=== PATIENT | male | born 1970 | race Caucasian/White ===

== ENCOUNTER 2019-07-12 13:21 | Emergency (ER) | payer BC ==
[~2019-07-12] VITALS: Ht 182.9 cm; Wt 75.7 kg
--- NOTE | 2019-07-12 13:35 | NUR ---
MID STERNAL CHEST PRESSURE, NON RADIATING SINCE LAST NIGHT. 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 STATES HAVING SOME DIFFICULTY TAKING DEEP BREATHS. INITIALLY HAD "SENSE OF IMPENDING DOOM". DENIES NUMBNESS/TINGLING IN EXTREMITIES. NO ACUTE DISTRESS NOTED AND NO OTHER COMPLAINTS AT THIS TIME. EKG COMPLETED, LAB AT BEDSIDE FOR BLOOD DRAW. THREAD DRAWER STANDING BY. ON MONITOR AND READY FOR EVAL.
[2019-07-12 13:45] LABS: BASOPHILS # (AUTO) 0.1 /CMM (0.0-0.2); BASOPHILS % (AUTO) 0.7 % (0.0-2.0); EOSINOPHILS % (AUTO) 0.3 % (0.0-6.0); HEMATOCRIT 43 % (39-51); HEMOGLOBIN 14.5 g/dL (13.5-17.5); LYMPHOCYTES # (AUTO) 1.9 /CMM (0.8-4.8); MEAN CORPUSCULAR HGB CONC 34 g/dl (31.0-36.0); MEAN CORPUSCULAR VOLUME 92 fL (80-96); MONOCYTES # (AUTO) 0.5 /CMM (0.1-1.30); MONOCYTES % (AUTO) 5.9 % (2.0-12.0); NEUTROPHILS % (AUTO) 71.1 % (43.0-81.0); PLATELET COUNT (AUTO) 294 /CMM (150-450); RED BLOOD CELL COUNT(AUTO) 4.61 MIL/uL (4.5-6.0); WHITE BLOOD COUNT (AUTO) 8.5 K/uL (4.3-11.0)
[2019-07-12 13:51] LABS: CALCIUM, SERUM 8.9 mg/dL (8.5-10.1); CARBON DIOXIDE 27 mmol/L (21-32); CHLORIDE 103 mmol/L (98-107); CREATININE 1.3 mg/dL (0.6-1.3); GLUCOSE 131 mg/dL (74-106); POTASSIUM 3.9 mmol/L (3.5-5.1); SODIUM SERUM 139 mmol/L (136-145); UREA NITROGEN, BLOOD 18 mg/dL (7-18)
--- NOTE | 2019-07-12 14:24 | NUR ---
PT ENDORSED TO [facility] FOR [facility]
--- NOTE | 2019-07-12 14:44 | NUR ---
Patient discharged to home in stable condition. Written and verbal after care instructions given. Patient verbalizes understanding of instruction.
[2019-07-12 14:51] VITALS: BP 139/80
== END 2019-07-12 15:07 | disposition home or self-care (01) ==
LOC: ER 13:24
DX: R07.89 Other chest pain (principal); F43.9 Reaction to severe stress, unspecified; Z88.0 Allergy status to penicillin
CPT/HCPCS: 36415; 71045-TC; 80048-TC; 84484-TC; 85025-TC